=== PATIENT | male | born 1960 | race Caucasian/White ===

== ENCOUNTER → 2021-08-05 15:57 | Outpatient (CLI) | payer BC, SELFPAY ==
--- NOTE | 2021-08-05 16:14 | MRI_ITS ---
STUDY: MRI LUMBAR SPINE WITHOUT CONTRAST REASON FOR EXAM: Male, 61 years old. DDD,pain low back and bilat legs TECHNIQUE: Standardized fat and water weighted pulse sequences were obtained in the sagittal and axial planes. COMPARISON: None FINDINGS: T12-L1: Normal endplates. Normal disc height, hydration and morphology. Normal bilateral facet joints. Normal central canal and bilateral lateral recesses. Normal bilateral intervertebral neural foramina. Normal lumbar lordosis. There is no substantial scoliosis. Normal conus medullaris that terminates at the T12/L1. L1-2: Normal endplates. Normal disc height, hydration and morphology. Normal bilateral facet joints. Normal central canal and bilateral lateral recesses. Normal bilateral intervertebral neural foramina. L2-3: Normal endplates. Normal disc height, hydration and morphology. Normal bilateral facet joints. Normal central canal and bilateral lateral recesses. Normal bilateral intervertebral neural foramina. L3-4: Mild right facet hypertrophy and moderate left facet hypertrophy with moderate ligament flavum hypertrophy. Mild bilobed disc protrusion with a left foraminal annular tear produces mild spinal stenosis and mild left neural foraminal stenosis. L4-5: Moderate bilateral facet hypertrophy and ligament flavum hypertrophy. 2 mm of anterolisthesis of L4 on L5 with a mild broad disc protrusion produces moderate spinal stenosis with moderate bilateral lateral recess stenosis with abutment of the L5 nerve roots bilaterally and moderate bilateral neural foraminal stenosis with abutment of the exiting L4 nerve roots bilaterally. L5-S1: Mild broad disc osteophyte complex produces mild spinal stenosis but moderate bilateral neural foraminal stenosis with abutment of the L5 nerve roots bilaterally. Normal visualized sacral ala. Normal visualized paraspinous soft tissue structures. MRI/Spine Lumbar (Routine) IMPRESSION: Multilevel degenerative changes, as described above. Electronically Signed: Pola Busby MD at 17:41 EST Tel , Service support ,
== END ==
PROVIDERS: PCP Family Medicine
DX: M51.36 Other intervertebral disc degeneration, lumbar region (principal); M99.03 Segmental and somatic dysfunction of lumbar region; M51.37 Other intervertebral disc degeneration, lumbosacral region
CPT/HCPCS: 72148